=== PATIENT | female | born 1955 | race Caucasian/White ===

== ENCOUNTER 2020-11-26 13:13 | Outpatient (CLI) | payer MEDICARE, OTHER | END 2020-11-26 13:14 | disposition home or self-care (01) | LOC: CSHMRI 13:13 | PROVIDERS: ATTEND Neurological Surgery | DX: G37.3 Acute transverse myelitis in demyelinating disease of central nervous system (principal); G62.9 Polyneuropathy, unspecified; M47.814 Spondylosis without myelopathy or radiculopathy, thoracic region; M47.816 Spondylosis without myelopathy or radiculopathy, lumbar region; M51.16 Intervertebral disc disorders with radiculopathy, lumbar region; G95.9 Disease of spinal cord, unspecified; M47.22 Other spondylosis with radiculopathy, cervical region | CPT/HCPCS: 72141; 72146; 72148 ==